=== PATIENT | female | born 1990 | race Caucasian/White ===

== ENCOUNTER 2018-01-22 05:47 | Emergency (ER) | payer BC ==
[~2018-01-22] VITALS: Ht 154.9 cm; Wt 96.1 kg
[~2018-01-22 05:47] MED LIST: ALBUTEROL SULF8.5 GM IH; AMOX TR-K CLV1 EAC4 PO; AMOXICILLIN500 M1 PO; AUGMENTIN875 MG PO; BACTRIM,SEPT1 TABLET PO; CAPITAL WITH C473 ML PO; FLOVENT 44120 INHALA IH; MOTRIN600 MG PO; MOTRIN800 MG PO; NOHOMEMEDS; NORCO 5/3251 TABLET PO; PAXIL30 MG PO; PERCOCET 5/31 TABLET PO; PREDNISONE50 MG PO; PROVENTIL HFA6.7 GM IH; SINGULAIR10 MG PO; SKELAXIN800 MG PO; ZYRTEC10 M1 PO
[2018-01-22 06:29] LABS: HEMOGLOBIN 15.3 G/DL (11.9-15.5); MCHC 35.6 G/DL (30.0-36.0); PLATELET COUNT 310 K/uL (156-360); RBC DIS.WIDTH-CV 13.1 % (11.8-14.6); RBC DIS.WIDTH-SD 43.4 % (39-53); RED BLOOD COUNT 4.78 M/uL (3.80-5.20); WHITE BLOOD COUNT 14.6 K/uL (4.1-10.2)
[2018-01-22 06:37] LABS: CHLORIDE 103 mEq/L (99-109); POTASSIUM 3.8 mEq/L (3.7-5.4); SODIUM 139 mEq/L (136-147)
[2018-01-22 06:39] LABS: GLUCOSE 91 mg/dL (70-99)
[2018-01-22 06:43] LABS: CREATININE 0.7 mg/dL (0.6-1.3); GFR ESTIMATE (CALCULATED) > 59 mL/min/
[2018-01-22 06:44] LABS: UREA NITROGEN (BUN) 11 mg/dL (9-23)
[2018-01-22] MEDS ORDERED: PREDNISONE50 MG PO (07:02)
[2018-01-22] MEDS ORDERED: ZITHROMAX Z-PA250 MG PO (07:02)
[2018-01-22 07:15] VITALS: BP 143/80
== END 2018-01-22 07:16 | disposition home or self-care (01) ==
LOC: EME 05:47
DX: J45.901 Unspecified asthma with (acute) exacerbation (principal); J20.9 Acute bronchitis, unspecified; F17.200 Nicotine dependence, unspecified, uncomplicated
CPT/HCPCS: 71046; 80048; 85027; 93005; 94640; 99281; 99284; J7512

== ENCOUNTER 2018-02-10 22:03 | Emergency (ER) | payer BC ==
[~2018-02-10] VITALS: Ht 154.9 cm; Wt 94.8 kg
[~2018-02-10 22:03] MED LIST changes: +ZITHROMAX Z-PA250 MG PO
[2018-02-10 22:35] LABS: HEMATOCRIT 43.9 % (36.0-46.0); HEMOGLOBIN 15.5 G/DL (11.9-15.5); MCH 32.1 PG (29.0-34.0); MCHC 35.3 G/DL (30.0-36.0); MCV 90.9 FL (83-99); PLATELET COUNT 315 K/uL (156-360); RBC DIS.WIDTH-SD 42.9 % (39-53); RED BLOOD COUNT 4.83 M/uL (3.80-5.20)
[2018-02-10 22:40] LABS: APPEARANCE CLOUDY ((CLEAR)); BILIRUBIN NEGATIVE; BLOOD NEGATIVE; COLOR AMBER ((YELLOW)); GLUCOSE (STRIP) NEGATIVE; KETONES 5; LEUKOCYTES TRACE; NITRITE NEGATIVE; PROTEIN (STRIP) 30; SPECIFIC GRAVITY 1.031 (1.000-1.030)
[2018-02-10 22:42] LABS: CHLORIDE 104 mEq/L (99-109); SODIUM 139 mEq/L (136-147)
[2018-02-10 22:44] LABS: GLUCOSE 94 mg/dL (70-99)
[2018-02-10 22:48] LABS: CREATININE 0.8 mg/dL (0.6-1.3); GFR ESTIMATE (CALCULATED) > 59 mL/min/
[2018-02-10 22:49] LABS: UREA NITROGEN (BUN) 11 mg/dL (9-23)
[2018-02-10 22:56] LABS: QUANTITATIVE HCG < 4.0 MIU/ML
[2018-02-10 23:04] LABS: BACTERIA RARE /HPF; EPITHELIAL CELLS 4+ /HPF; MUCUS 2+ /LPF; RED BLOOD CELLS 0-5 /HPF (0-5); UCUL ADDED? NO; WHITE BLOOD CELLS 0-5 /HPF (0-5)
[2018-02-11] MEDS ORDERED: FLEXERIL10 MG PO (01:36)
[2018-02-11] MEDS ORDERED: NAPROXEN500 MG PO (01:36)
[2018-02-11 01:42] VITALS: BP 134/82
== END 2018-02-11 01:43 | disposition home or self-care (01) ==
LOC: EME 22:03
DX: M62.830 Muscle spasm of back (principal); J45.909 Unspecified asthma, uncomplicated; F17.200 Nicotine dependence, unspecified, uncomplicated
CPT/HCPCS: 74176; 80048; 81003; 84702; 85027; 99281; 99284

== ENCOUNTER 2018-05-10 17:28 | Emergency (ER) | payer BC ==
[~2018-05-10] VITALS: Ht 157.5 cm; Wt 93.6 kg
[~2018-05-10 17:28] MED LIST changes: +FLEXERIL10 MG PO; +NAPROXEN500 MG PO
[2018-05-10] MEDS ORDERED: MOTRIN800 MG PO (19:16)
[2018-05-10 20:05] VITALS: BP 118/98
== END 2018-05-10 20:06 | disposition home or self-care (01) ==
LOC: EME 17:28
DX: S93.401A Sprain of unspecified ligament of right ankle, initial encounter (principal); S93.502A Unspecified sprain of left great toe, initial encounter; X50.1XXA Overexertion from prolonged static or awkward postures, initial encounter; Y93.01 Activity, walking, marching and hiking; J45.909 Unspecified asthma, uncomplicated; F17.200 Nicotine dependence, unspecified, uncomplicated
CPT/HCPCS: 73610; 73660; 99281; 99284